=== PATIENT | male | born 1990 | race Caucasian/White ===

== ENCOUNTER 2016-07-07 21:18 | Emergency (ER) | payer BC ==
[2016-07-07 21:20] VITALS: BP 145/72; PULSE 117; RESP 6; TEMP 98.2; O2SAT 99
[2016-07-07] MEDS ORDERED: NALOXONE HCL 2 MG/2 ML VIAL ONE (21:20)
[2016-07-07] MEDS ORDERED: NALOXONE HCL 2 MG/2 ML VIAL IV PUSH ONE (21:30)
[2016-07-07] MEDS ORDERED: SODIUM CHLORIDE 0.9% FLUSH 10 ML FLUSH IVF PRN (21:30)
[2016-07-07] MEDS ORDERED: SODIUM CHLOR 0.9% 1000 ML INJ 1,000 ML IV SCH (21:30)
[2016-07-07 21:35] VITALS: O2SAT 98
--- NOTE | 2016-07-07 21:35 | PD ---
HPI Chief Complaint: overdose Time Seen by Provider: 21:26 Travel History International Travel<30 days: No Contact w/Intl Traveler<30days: No Traveled to known affect area: No History of Present Illness HPI Adult male presents to the emergency department by EMS transport after being identified unresponsive with spontaneous decreased respiratory rate with no reported response to 2 mg of Narcan IV in the field or nasal trumpet insertion. Patient was receiving supplemental oxygen and assisted ventilations through a mask and Ambu bag. Patient reportedly was with a friend to states he was feeling fine and then just suddenly collapsed. Patient reportedly with history of seizure disorder. Unknown antiepileptic medications. Patient reportedly has been drug-free for 60 days according to bystander that called EMS. No bystanders or friends or family here in the emergency department. [facility] Past Medical History Narrative Medical Seizure, substance use; nursing notes reviewed Social History Tobacco Use: Yes Substance Use: Yes Allergies-Medications (Allergen,Severity, Reaction): Coded Allergies: Ceclor (Verified Allergy, Unknown, 07/07/16) Reported Meds & Prescriptions Reported Meds & Active Scripts Active Zithromax Z-Chris (Azithromycin) 250 Mg Dspk 250 Mg PO DIRECTED 500 MG (2 tabs) day 1, then 1 tab days 2-5. Review of Systems ROS Limitations: Clinical Condition, Unresponsive Physical Exam Narrative GENERAL: Well-developed well-nourished male unresponsive with GCS of 3 SKIN: Warm and dry. HEAD: Normocephalic. EYES: No scleral icterus. No injection or drainage. Bilateral pupils round dilated and not reactive to light NECK: Supple, trachea midline. No JVD or lymphadenopathy. CARDIOVASCULAR: Regular rate and rhythm without murmurs, gallops, or rubs. RESPIRATORY: Breath sounds equal bilaterally. No accessory muscle use. GASTROINTESTINAL: Abdomen soft, non-tender, nondistended. MUSCULOSKELETAL: No cyanosis, or edema. BACK: Nontender without obvious deformity. No CVA tenderness. Data Data Last Documented VS Vital Signs Date Time Temp Pulse Resp B/P Pulse Ox O2 Delivery O2 Flow Rate FiO2 07/08/16 01:57 75 16 118/75 98 07/07/16 22:42 Nasal Cannula 2 07/07/16 21:20 98.2 Orders Naloxone Inj (Narcan Inj) (07/07/16 21:20) Electrocardiogram (07/07/16 21:26) Complete Blood Count With Diff (07/07/16 21:26) Comprehensive Metabolic Panel (07/07/16 21:26) Prothrombin Time / Inr (Pt) (07/07/16 21:) Act Partial Throm Time (Ptt) (07/07/16:) Urinalysis - C+S If Indicated (07/07/16 21:26) Chest, Single Ap (07/07/16 21:26) Ct Brain W/O Iv Contrast(Rout) (07/07/16 21:26) Iv Access Insert/Monitor (07/07/16 21:) Ecg Monitoring (07/07/16 21:) Oximetry (07/07/16 21:) Sodium Chloride 0.9% Flush (Ns Flush) (07/07/16 21:30) Restraints Non-Violent [place].Q3H (07/07/16 21:26) Drug Screen, Random Urine (07/07/16 21:26) Alcohol (Ethanol) (07/07/16 21:26) Salicylates (Aspirin) (07/07/16 21:26) Tylenol (Acetaminophen) (07/07/16 21:26) Sodium Chlor 0.9% 1000 Ml Inj (Ns 1000 M (07/07/16 21:30) Naloxone Inj (Narcan Inj) (07/07/16 21:30) ^ Seizure Precautions (07/07/16 21:26) Sodium Chlor 0.9% 1000 Ml Inj (Ns 1000 M (07/07/16 23:30) Blood Culture (07/07/16 23:21) Azithromycin Inj (Zithromax Inj) (07/07/16 23:30) Labs Laboratory Tests Test 07/07/16 07/07/16 21:30 21:45 White Blood Count 13.2 TH/MM3 Red Blood Count 5.25 MIL/MM3 Hemoglobin 14.6 GM/DL Hematocrit 43.7 % Mean Corpuscular Volume 83.2 FL Mean Corpuscular Hemoglobin 27.9 PG Mean Corpuscular Hemoglobin 33.5 % Concent Red Cell Distribution Width 14.0 % Platelet Count 254 TH/MM3 Mean Platelet Volume 8.0 FL Neutrophils (%) (Auto) 47.9 % Lymphocytes (%) (Auto) 44.6 % Monocytes (%) (Auto) 6.2 % Eosinophils (%) (Auto) 1.1 % Basophils (%) (Auto) 0.2 % Neutrophils # (Auto) 6.3 TH/MM3 Lymphocytes # (Auto) 5.9 TH/MM3 Monocytes # (Auto) 0.8 TH/MM3 Eosinophils # (Auto) 0.1 TH/MM3 Basophils # (Auto) 0.0 TH/MM3 CBC Comment AUTO DIFF Differential Comment AUTO DIFF CONFIRMED Platelet Estimate NORMAL Platelet Morphology Comment NORMAL Prothrombin Time 10.3 SEC Prothromb Time International 0.9 RATIO Ratio Activated Partial 25.2 SEC Thromboplast Time Sodium Level 141 MEQ/L Potassium Level 3.3 MEQ/L Chloride Level 101 MEQ/L Carbon Dioxide Level 31.7 MEQ/L Anion Gap 8 MEQ/L Blood Urea Nitrogen 9 MG/DL Creatinine 1.58 MG/DL Estimat Glomerular Filtration 38 ML/MIN Rate Random Glucose 277 MG/DL Calcium Level 8.3 MG/DL Total Bilirubin 0.2 MG/DL Aspartate Amino Transf 45 U/L (AST/SGOT) Alanine Aminotransferase 84 U/L (ALT/SGPT) Alkaline Phosphatase 100 U/L Total Protein 7.5 GM/DL Albumin 4.2 GM/DL Salicylates Level 3.2 MG/DL Acetaminophen Level LESS THAN 2.0 MCG/ML Ethyl Alcohol Level LESS THAN 3 MG/DL Urine Color YELLOW Urine Turbidity CLOUDY Urine pH 8.5 Urine Specific [place] 1.014 Urine Protein 30 mg/dL Urine Glucose (UA) 300 mg/dL Urine Ketones NEG mg/dL Urine Occult Blood NEG Urine Nitrite NEG Urine Bilirubin NEG Urine Urobilinogen LESS THAN 2.0 MG/DL Urine Leukocyte Esterase NEG Urine RBC 3 /hpf Urine WBC 5 /hpf Urine Squamous Epithelial <1 /hpf Cells Urine Amorphous Sediment RARE Urine Bacteria RARE /hpf Urine Mucus FEW /lpf Microscopic Urinalysis Comment CULT NOT INDICATED Urine Opiates Screen NEG Urine Barbiturates Screen NEG Urine Amphetamines Screen NEG Urine Benzodiazepines Screen NEG Urine Cocaine Screen NEG Urine Cannabinoids Screen NEG MDM Medical Decision Making Medical Screen Exam Complete: Yes Emergency Medical Condition: Yes Medical Record Reviewed: Yes Interpretation(s) EKG: Sinus tachycardia rate [address] elevation or injury pattern change noted Last Impressions Head CT 07/07/162125 Signed Impressions: Service Date/Time: July 21:50 - CONCLUSION: Normal examination. Rodrigo Garica MD Chest X-Ray 07/07/162125 Signed Impressions: Service Date/Time: July 21:47 - CONCLUSION: Mild increased density at the right base likely related to some degree of atelectasis or consolidation. Rodrigo Garcia MD CBC & BMP Diagram 07/07/16 21:30 Urine drug screen:negative Serum alcohol: 3, not elevated Differential Diagnosis Altered mental status, overdose, seizure Narrative Course Narcan 2mg iv stat with GCS 14 @ 9:30 PM GCS 15 admits to heroin ingestion just prior to event @ 9:39 PM patient admits to injecting a half bag of heroin this evening. Patient reports he's been drug free for 43 days. Patient states typically he injects more than half a bag of heroin at a time. Patient states he is prescribed sertraline Neurontin and Zoloft from an outpatient clinic and took his last dose of medications Monday evening. Patient denies any other chronic medical conditions no previous surgeries and denies alcohol or other substance ingestion. Patient states she does not have a seizure disorder does not take seizure medications. Patient does not report any area of pain or injury or recent febrile illness. It is now 1:45 AM patient has been monitored for several hours post Narcan administration has had no recurrence of respiratory depression or somnolence is stable at this time for outpatient management have discussed in detail the risk of ongoing IV drug use and recommended follow-up with [facility] for detox. Patient again denies being suicidal or homicidal. Patient remains awake with GCS of 15 patient has been monitored in the emergency department for over 6 hours without recurrent somnolence or respiratory depression. Patient here to be discharged to home. Patient received a dose of IV antibiotic in view of imaging concerning for possible atelectasis versus infiltrate. Patient denies any recent respiratory illness no fever no chills no cough no congestion no shortness of breath no chest pain or pleuritic chest pain no phlegm production no viral illness no abdominal pain no back pain. Patient does have history of heroin abuse in the past. Patient states he had been drug free for 43 days and fell off the wagon. Patient states he is aware of how serious his condition was when he came in. Patient is encouraged to seek out detox program. Patient at this time again denies being suicidal or homicidal. This is an accidental overdose of heroin and is aware that this is a life-threatening event and that he needs to go to a detox program. Patient is desirous of doing so. States he will do so on his own. At this point time patient is oriented to person place time and events GCS is 15 and patient is otherwise clinically stable for outpatient management. Diagnosis Primary Impression: Overdose of heroin Qualified Code: T40.1X1A - Overdose of heroin, accidental or unintentional, initial encounter Additional Impressions: Atelectasis Dehydration Referrals: [facility] Patient Instructions: General Instructions Additional Instructions: Discontinue IV drug use Follow-up with [facility] Return to the emergency department for any concerns or change in condition Med/Other Pt SpecificInfo: Prescription(s) given Scripts Azithromycin (Zithromax Z-Chris)250 Mg [id number] Mg PO DIRECTED #1 DSPK Ref 0 500 MG (2 tabs) day 1, then 1 tab days 2-5. Prov:Dunia Lester MD 07/08/16 Disposition: 01 DISCHARGE HOME Condition: Stable Dunia Lester MD July 07, 2016 21:35
--- NOTE | 2016-07-07 22:12 | RADRPT ---
EXAM DATE/TIME: 07/07/2016 21:47 [facility] COMPARISON: No previous studies available for comparison. INDICATIONS : Syncope. MEDICAL HISTORY : None. SURGICAL HISTORY : None. ENCOUNTER: Initial ACUITY: 1 day PAIN SCORE: Non-responsive. LOCATION: Bilateral chest FINDINGS: The heart size is normal. There is mild increased density seen at the right lung base. The left lung is clear. The costophrenic angles are clear. The bony structures appear grossly intact. CONCLUSION: Mild increased density at the right base likely related to some degree of atelectasis or consolidatio n. Rodrigo Garcia MD on July 07, 2016 at 22:08 Board Certified Radiologist. This report was verified electronically.
--- NOTE | 2016-07-07 22:17 | RADRPT ---
EXAM DATE/TIME: 07/07/2016 21:50 [facility] COMPARISON: No previous studies available for comparison. INDICATIONS : Altered mental status. RADIATION DOSE: 47.19 CTDIvol (mGy) MEDICAL HISTORY : Non-responsive. SURGICAL HISTORY : Non-responsive. ENCOUNTER: Initial ACUITY: 1 day PAIN SCALE: Non-responsive LOCATION: cranial TECHNIQUE: Multiple contiguous axial images were obtained of the head. Using automated exposure control and adj ustment of the mA and/or kV according to patient size, radiation dose was kept as low as reasonably a chievable to obtain optimal diagnostic quality images. FINDINGS: CEREBRUM: The ventricles are normal for age. No evidence of midline shift, mass lesion, hemorrhage or acute in farction. No extra-axial fluid collections are seen. POSTERIOR FOSSA: The cerebellum and brainstem are intact. The 4th ventricle is midline. The cerebellopontine angle i s unremarkable. EXTRACRANIAL: The visualized portion of the orbits is intact. SKULL: The calvaria is intact. No evidence of skull fracture. CONCLUSION: Normal examination. Rodrigo Garcia MD on July 07, 2016 at 22:15 Board Certified Radiologist. This report was verified electronically.
[2016-07-07 22:23] LABS: AUTOMATED NEUTROPHIL # 6.3 TH/MM3 (1.8-7.7); BASOPHIL % 0.2 % (0.0-2.0); EOSINOPHIL # 0.1 TH/MM3 (0-0.4); EOSINOPHIL % 1.1 % (0.0-4.0); HEMATOCRIT 43.7 % (39.0-51.0); LYMPH % 44.6 % (9.0-44.0); LYMPHOCYTE # 5.9 TH/MM3 (1.0-4.8); MEAN CELL VOLUME 83.2 FL (80.0-100.0); MEAN CORPUSCULAR HEMOGLOBIN 27.9 PG (27.0-34.0); MEAN CORPUSCULAR HGB CONC 33.5 % (32.0-36.0); MONO % 6.2 % (0.0-8.0); NEUT % 47.9 % (16.0-70.0); PLATELET COUNT 254 TH/MM3 (150-450); RED BLOOD COUNT 5.25 MIL/MM3 (4.50-5.90); WHITE BLOOD COUNT 13.2 TH/MM3 (4.0-11.0)
[2016-07-07 22:25] LABS: BACTERIA, URINE RARE /hpf; BLOOD, URINE NEG (NEG); COMMENT (UR) CULT NOT INDICATED; CULTURE IF INDICATED CULT NOT INDICATED; GLUCOSE,URINE 300 mg/dL (NEG); KETONE, URINE NEG (NEG); MUCUS URINE FEW /lpf (OCC); NITRITE,URINE NEG (NEG); PH, URINE 8.5 (5.0-8.5); SQUAMOUS EPITHELIAL CELL URINE <1 /hpf (0-5); URINE COLOR YELLOW (YELLW/STRAW)
[2016-07-07 22:25] LABS: HEMO FLAGS AUTO DIFF
[2016-07-07 22:28] LABS: AMPHETAMINE, URINE NEG (NEG); BARBITURATES, URINE NEG (NEG); COCAINE, URINE NEG (NEG)
[2016-07-07 22:32] LABS: APTT (PATIENT) 25.2 SEC (24.3-30.1); INTERNATIONAL NORMALIZED RATIO 0.9 RATIO; PROTHROMBIN TIME - PATIENT 10.3 SEC (9.8-11.6)
[2016-07-07 22:36] LABS: ALT (GPT) 84 U/L (12-78); ANION GAP 8 MEQ/L (5-15); AST (GOT) 45 U/L (15-37); BICARBONATE 31.7 MEQ/L (21.0-32.0); BLOOD UREA NITROGEN 9 MG/DL (7-18); CHLORIDE 101 MEQ/L (98-107); GLOMERULAR FILTRATION RATE 38 ML/MIN (>89); POTASSIUM 3.3 MEQ/L (3.5-5.1); SODIUM (NA) 141 MEQ/L (136-145)
[2016-07-07 22:39] LABS: ACETAMINOPHEN LESS THAN 2.0 MCG/ML (10.0-30.0); ALKALINE PHOSPHATASE 100 U/L (45-117); TOTAL BILIRUBIN ADULT 0.2 MG/DL (0.2-1.0)
[2016-07-07 22:42] VITALS: BP 131/79; PULSE 113; RESP 16; O2SAT 98
[2016-07-07 22:52] LABS: PLATELET ESTIMATE SMEAR NORMAL (NORMAL); PLATELET MORPHOLOGY NORMAL (NORMAL); SCAN/DIFF AUTO DIFF CONFIRMED
[2016-07-07] MEDS ORDERED: SODIUM CHLOR 0.9% 1000 ML INJ 1,000 ML IV ONE (23:30)
[2016-07-07] MEDS ORDERED: AZITHROMYCIN INJ 500 MG in SODIUM CHLOR 0.9% 250 ML INJ 250 ML IV ONE (23:30)
[2016-07-08] MEDS ORDERED: ZITHTAB PO ×2 (01:48→02:08)
[2016-07-08 01:57] VITALS: BP 118/75; PULSE 75; RESP 16; O2SAT 98
== END 2016-07-08 02:14 | disposition home or self-care (01) ==
LOC: EDBD 21:18 → NEPC 21:18
DX: T40.1X1A Poisoning by heroin, accidental (unintentional), initial encounter (principal); J98.11 Atelectasis; E86.0 Dehydration; R55 Syncope and collapse; G40.909 Epilepsy, unspecified, not intractable, without status epilepticus; Z72.0 Tobacco use
CPT/HCPCS: 70450; 71010; 80053; 80307; 81001; 85025; 85610; 85730; 87040; 96361; 96365; 96375; 99285; J0456; J2310; J7030; J7050